=== PATIENT | female | born 1930 | race Caucasian/White ===

== ENCOUNTER 2022-02-03 13:12 | Emergency (ER) | payer MEDICARE ==
[~2022-02-03] VITALS: Ht 167.7 cm; Wt 93.9 kg
--- NOTE | 2022-02-03 13:27 | ED Fall/Injury ---
General Chief Complaint: Trauma-Non Activation Stated Complaint: FALL Source: patient, family Exam Limitations: no limitations History of Present Illness Date Seen by Provider: February 03, 2022 Time Seen by Provider: 13:17 Initial Comments 89-year-old female with past medical history of A. fib on Eliquis CVA with residual R sided weakenss, and hypertension coming in after a fall. She was mopping around 830 this morning, slipped, fell backwards catching her fall with her right arm. Does not believe she hit her head or passed out. Having right shoulder and elbow pain. The pain is moderate, constant, sharp, worse with movement, better with rest. Took Tylenol 500 mg this morning which did help some. Is up-to-date on her tetanus. Endorses a small cut to her right elbow. Allergies and Home Medications Allergies Coded Allergies: Sulfa (Sulfonamide Antibiotics) (Verified Allergy, Unknown, 02/03/22) amoxicillin (Verified Allergy, Unknown, 02/03/22) azithromycin (Verified Allergy, Unknown, 02/03/22) nifedipine (Verified Allergy, Unknown, 02/03/22) nitrofurantoin (Verified Allergy, Unknown, 02/03/22) Patient Home Medication List Home Medication List Reviewed: Yes Hydrocodone Bit/Acetaminophen (HYDROcodone/APAP 5 MG/325 MG TAB) 1 Tab Tab, 1 TAB PO Q6H PRN for PAIN-SEVERE (8-10) Prescribed by: BONIFACIO MCCANN on 02/03/22 1407 Review of Systems Review of Systems Constitutional: No chills, No fever Eyes: Denies Blurred Vision Ears, Nose, Mouth, Throat: no symptoms reported Respiratory: no symptoms reported Cardiovascular: no symptoms reported Gastrointestinal: no symptoms reported Genitourinary: no symptoms reported Musculoskeletal: joint pain Skin: other (laceration) Psychiatric/Neurological: No Symptoms Reported All Other Systems Reviewed Negative Unless Noted: Yes Past Jauaeuh-Brvxkn-Vlueyx Hx Patient Social History Tobacco Use?: No Past Medical History Surgeries: No Physical Exam Vital Signs Vital Signs - First Documented 02/03/22 13:18 Temp 36.7 Pulse 66 Resp 18 B/P (MAP) 188/65 (106) Pulse Ox 95 O2 Delivery Room Air Capillary Refill : Height, Weight, BMI Height: '" Weight: lbs. oz. kg; BMI Method: General Appearance: WD/WN, no apparent distress HEENT: PERRL/EOMI, normal ENT inspection, pharynx normal Neck: non-tender, full range of motion, supple, normal inspection Cardiovascular: no edema, no murmur, irregularly irregular Respiratory: chest non-tender, lungs clear, normal breath sounds, no respiratory distress, no accessory muscle use Gastrointestinal: normal bowel sounds, non tender, soft; No distended, No guarding, No rebound Back: normal inspection, no CVA tenderness, no vertebral tenderness Extremities: no pedal edema, no calf tenderness, normal capillary refill, other (Right shoulder with swelling and decreased range of motion active and passive, right elbow with some tenderness to palpation and a 1 cm laceration that is superficial, normal distal pulses and sensation, normal motor exam including specific testing for radial, ulnar, median nerves) Neurologic/Psychiatric: 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, alert, normal mood/affect, oriented x 3, other (Right upper extremity with weakness, difficult to assess based on pain) Skin: normal color, warm/dry Lymphatic: no adenopathy Leander Coma Score Best Eye Response: (4) Open Spontaneously Best Verbal Response: (5) Oriented Best Motor Response: (6) Obeys Commands Procedures/Interventions Wound Location: Upper Extremities Other Wound Location right elbow Wound Length (cm): 1 Wound's Depth, Shape: superficial Wound Explored: clean Irrigated w/ Saline (ccs): 150 Betadine Prep?: No Other Closure Supply: Steri Strip 10/09", Mastisol, Wound Adhesive Progress Patient tolerated the procedure well, hemostatic afterwards, up-to-date on tetanus Progress/Results/Core Measures Results/Orders My Orders Orders - BONIFACIO MCCANN MD Ct Head Wo (02/03/22 13:23) Elbow 3 View Right (02/03/22 13:23) Shoulder 3 View Right (02/03/22 13:23) Vital Signs/I&O 02/03/22 13:18 Temp 36.7 Pulse 66 Resp 18 B/P (MAP) 188/65 (106) Pulse Ox 95 O2 Delivery Room Air Progress Progress Note : Progress Note 89-year-old female with above history coming in after she slipped on water la nding on her right arm. ABCs were intact and vitals were stable on presentation with a GCS of 15. Physical exam with right shoulder and elbow tenderness most notably. Has a small laceration to the right elbow which was closed with glue and Steri-Strips used. CT head, right shoulder x-ray, right elbow x-ray obtained. On my interpretation the right shoulder has a proximal fracture with shortening and displacement. The shoulder is located within the joint. Elbow without acute abnormality. The patient was placed in a sling. I discussed given her prior stroke with very little use of her right arm prior, and her comorbidities mixed with her age, she is likely not a great surgical candidate. I will refer her to an orthopedist, however she says she has 1 mind that she would like to see. I recommended close follow-up within the next couple days if able. CT head without any acute ab normalities. I believe the patient is stable for discharge with outpatient follow-up. She was sent home with strict return precautions. Diagnostic Imaging Diagonstic Imaging: Xray (right shoulder and elbow), CT (head) Comments NAME: APRIL GARCIA I [facility] REC#: [id number] PT STATUS: REG ER : 1930 PHYSICIAN: BONIFACIO MCCANN MD ADMIT DATE: 02/03/22/ER FS Draft Date of Exam:02/03/22 CT HEAD WO PROCEDURE: CT head without contrast. TECHNIQUE: Multiple contiguous axial images were obtained through the brain without the use of intravenous contrast. Auto Exposure Controls were utilized during the CT exam to meet ALARA standards for radiation dose reduction. INDICATION: Fall, head injury, on blood thinners COMPARISON: None FINDINGS: The ventricles and cortical sulci are mildly prominent, likely from generalized parenchymal volume loss. There is no midline shift and no significant mass effect. There are scattered areas of hypoattenuation in the periventricular white matter, most likely from chronic microvascular disease. There is a fluid density lesion in the left basal ganglia, may represent a prominent perivascular space or an old lacunar infarct. No acute intracranial hemorrhage is seen. There is no CT evidence of acute territorial ischemia. The calvarium appears intact. Visualized paranasal sinuses are clear. There is a small subcutaneous oval mass in the left parietal scalp, likely an epidermoid cyst. IMPRESSION: 1. No acute intracranial hemorrhage or CT evidence of acute territorial ischemia. Dictated on workstation # [id number] Dict: 02/03/22 1358 Trans: 02/03/221401 CVB [id number] Interpreted by: RAFIQ HANCOCK MD Electronically signed by: [facility] [place], [place] NAME: APRIL GARCIA [facility] REC#: [id number] PT STATUS: REG ER : 1930 PHYSICIAN: BONIFACIO MCCANN MD ADMIT DATE: 02/03/22/ER FS Draft Date of Exam:02/03/22 SHOULDER 3 VIEW RIGHT Indication: Fall with right shoulder pain. Comparison: None. Discussion: Three views of the right shoulder were obtained. There is an acute humeral neck fracture on the right. There is some rotation of the humeral head and malalignment of the humeral shaft although erwin dislocation identified. Shaft is displaced anteriorly. Soft tissue swelling is noted. Impression: 1. Acute displaced right humeral neck fracture. Dictated on workstation # [id number] Dict: 02/03/22 1358 Trans: 02/03/221 CVB [id number] Interpreted by: TERRELL HERNÁNDEZ MD Electronically signed by: [facility] [place], [place] NAME: APRIL GARCIA [facility] REC#: [id number] PT STATUS: REG ER : 1930 PHYSICIAN: BONIFACIO MCCANN MD ADMIT DATE: 02/03/22/ER FS Draft Date of Exam:02/03/22 ELBOW 3 VIEW RIGHT Indication: Fall with right elbow pain. Comparison: None. Discussion: Three views of the right elbow were obtained. No effusion. Posterior soft tissue swelling noted. No fracture or dislocation. No foreign body. No significant degenerative disease. Impression: 1. Posterior right elbow soft tissue swelling. No fracture. Dictated on workstation # [id number] Dict: 02/03/22 1359 Trans: 02/03/221401 CVB [id number] Interpreted by: TERRELL HERNÁNDEZ MD Electronically signed by: Departure Impression Primary Impression: Right humeral fracture Qualified Codes: S42.291A - Other displaced fracture of upper end of right humerus, initial encounter for closed fracture Additional Impression: Elbow laceration Qualified Codes: S51.011A - Laceration without foreign body of right elbow, initial encounter Disposition: 01 HOME, SELF-CARE Condition: Stable Departure-Patient Inst. Decision time for Depature: 14:30 Referrals: NO,LOCAL PHYSICIAN (PCP) Primary Care Physician MARGE NGO MD Patient Instructions: Upper Arm Fracture, Laceration Repair With Glue ED Add. Discharge Instructions: Keep the sling on for comfort as well as to keep it more steady. Take Tylenol as needed for pain. If you have severe pain you can try the hydrocodone. I would start with cutting it in half and seeing if that helps. I would also try icing the area. Follow-up with the orthopedist of your choosing as soon as possible. Try not to get your cut on your elbow wet for the next 3 days or so. I would keep it covered with a Band-Aid to help keep the Steri-Strip white bandages on there longer. After about a week you can let them fall off. Scripts Hydrocodone Bit/Acetaminophen (HYDROcodone/APAP 5 MG/325 MG TAB) 1 Tab Tab 1 TAB PO Q6H PRN for PAIN-SEVERE (8-10) for 3 Days, #12 TAB 0 Refills Prov: BONIFACIO MCCANN MD 02/03/22 BONIFACIO MCCANN MD February 03, 2022 13:27
--- NOTE | 2022-02-03 14:02 | Diagnostic Imaging Report ---
Indication: Fall with right shoulder pain. Comparison: None. Discussion: Three views of the right shoulder were obtained. There is an acute humeral neck fracture on the right. There is some rotation of the humeral head and malalignment of the humeral shaft although erwin dislocation identified. Shaft is displaced anteriorly. Soft tissue swelling is noted. Impression: 1. Acute displaced right humeral neck fracture. Dictated by: Dictated on workstation # [id number]
--- NOTE | 2022-02-03 14:02 | Diagnostic Imaging Report ---
Indication: Fall with right elbow pain. Comparison: None. Discussion: Three views of the right elbow were obtained. No effusion. Posterior soft tissue swelling noted. No fracture or dislocation. No foreign body. No significant degenerative disease. Impression: 1. Posterior right elbow soft tissue swelling. No fracture. Dictated by: Dictated on workstation # [id number]
--- NOTE | 2022-02-03 14:03 | Diagnostic Imaging Report ---
PROCEDURE: CT head without contrast. TECHNIQUE: Multiple contiguous axial images were obtained through the brain without the use of intravenous contrast. Auto Exposure Controls were utilized during the CT exam to meet ALARA standards for radiation dose reduction. INDICATION: Fall, head injury, on blood thinners COMPARISON: None FINDINGS: The ventricles and cortical sulci are mildly prominent, likely from generalized parenchymal volume loss. There is no midline shift and no significant mass effect. There are scattered areas of hypoattenuation in the periventricular white matter, most likely from chronic microvascular disease. There is a fluid density lesion in the left basal ganglia, may represent a prominent perivascular space or an old lacunar infarct. No acute intracranial hemorrhage is seen. There is no CT evidence of acute territorial ischemia. The calvarium appears intact. Visualized paranasal sinuses are clear. There is a small subcutaneous oval mass in the left parietal scalp, likely an epidermoid cyst. IMPRESSION: 1. No acute intracranial hemorrhage or CT evidence of acute territorial ischemia. Dictated by: Dictated on workstation # [id number]
[2022-02-03] MEDS ORDERED: ACHD5005 PO (14:07)
[2022-02-03 14:24] VITALS: BP 162/68
== END 2022-02-03 14:31 | disposition home or self-care (01) ==
LOC: ER FS 13:14
DX: S42.291A Other displaced fracture of upper end of right humerus, initial encounter for closed fracture (principal); I48.91 Unspecified atrial fibrillation; Z86.73 Personal history of transient ischemic attack (TIA), and cerebral infarction without residual deficits; Z79.02 Long term (current) use of antithrombotics/antiplatelets; W01.0XXA Fall on same level from slipping, tripping and stumbling without subsequent striking against object, initial encounter; Y93.E5 Activity, floor mopping and cleaning
CPT/HCPCS: 70450; 73030; 73080; 99283; A4565